=== PATIENT | female | born 1955 | race Caucasian/White ===

== ENCOUNTER → 2025-05-20 | Outpatient (CLI) | payer MEDICARE, BC ==
--- NOTE | 2025-05-20 22:13 | XR ---
EXAMINATION TYPE: XR lumbar spine 2 or 3V DATE OF EXAM: 05/20/2025 5:25 PM COMPARISON: None. CLINICAL INDICATION: Female, 69 years old with history of M54.9 M54.5 M54.30, pain TECHNIQUE: 3 view(s) obtained. FINDINGS: There are 5 lumbar-type vertebral bodies. Pedicles are intact. Vertebral body heights are preserved. There is loss of disc height at L3-4. Mild narrowing of the posterior L4-5 disc space may be present. There is disc space narrowing posteriorly at L2-3 and L1-2. Minimal retrocrural listhesis of L2 on L 3 may be present. Some posterior endplate spurring may be present L3-4. IMPRESSION: 1. Minimal retrolisthesis of L2 on L3. 2. Degenerative disc changes and endplate spurring at L3-4. 3. MRI can be performed as clinically indicated [facility], , 05/20/2025 10:10 PM
--- NOTE | 2025-05-20 22:14 | XR ---
EXAMINATION TYPE: XR pelvis AP view DATE OF EXAM: 05/20/2025 5:25 PM COMPARISON: None. CLINICAL INDICATION: Female, 69 years old with history of M54.9 M54.5 M54.30, pain TECHNIQUE: AP view(s) obtained. FINDINGS: Pubic symphysis and sacroiliac joints are normal. Femoral heads articulate with the acetabulum. No ac kake fractures or dislocations are evident. Mild fecal debris is within the colon. IMPRESSION: 1. No AP pelvic osseous abnormality. [facility], , 05/20/2025 10:12 PM
--- NOTE | 2025-05-20 22:16 | XR ---
EXAMINATION TYPE: XR thoracic spine complete DATE OF EXAM: 05/20/2025 5:25 PM COMPARISON: None. CLINICAL INDICATION: Female, 69 years old with history of M54.9 M54.5 M54.30, pain TECHNIQUE: 3 view(s) obtained. FINDINGS: There are 12 thoracic type vertebral bodies. Pedicles are intact. There is exaggerated kyphosis. Some degenerative disc changes within the mid to lower thoracic spine. No spondylolisthesis is evident. IMPRESSION: 1. Thoracic kyphosis [facility], , 05/20/2025 10:14 PM
--- NOTE | 2025-05-20 22:18 | XR ---
EXAMINATION TYPE: XR cervical spine comp DATE OF EXAM: 05/20/2025 5:25 PM COMPARISON: None. CLINICAL INDICATION: Female, 69 years old with history of M54.9 M54.5 M54.30, pain TECHNIQUE: 3 view(s) obtained. FINDINGS: Prevertebral space is normal. Vertebral body alignment is normal. Posterior spinal lamellar line is i ntact. Right foraminal narrowing is present C3-4 C4-5 C5-6 right foraminal stenosis present at C3-4 a nd C4-5. Facet degenerative changes present. The odontoid is limited despite multiple attempts with o verlying incisors and occiput. IMPRESSION: 1. Foraminal stenosis greatest on the left at C3-4 and C4-5 but present on the right as discussed ab henrry. [facility], , 05/20/2025 10:16 PM
== END | disposition home or self-care (01) ==
LOC: RADXRMAIN 16:22
PROVIDERS: ATTEND Chiropractor
DX: M48.02 Spinal stenosis, cervical region (principal); M54.30 Sciatica, unspecified side; M43.16 Spondylolisthesis, lumbar region; M47.816 Spondylosis without myelopathy or radiculopathy, lumbar region; M40.294 Other kyphosis, thoracic region; M47.812 Spondylosis without myelopathy or radiculopathy, cervical region
CPT/HCPCS: 72050; 72072; 72100; 72170